=== PATIENT | female | born 1955 | race Caucasian/White ===

== ENCOUNTER 2018-09-07 08:18 | Observation (INO) ==
[2018-09-07] MEDS ORDERED: Regadenoson Inj 0.4 MG/5 ML Syringe IV.PUSH ONE (10:50)
[2018-09-07] MEDS ORDERED: Morphine Inj 4 MG/ML Vial IV.PUSH ONE (12:42)
[2018-09-07] MEDS ORDERED: Morphine Inj 4 MG/ML Vial IV.PUSH PRN (12:43)
[2018-09-07] MEDS: Sod Chloride 0.9% Inj 1,000 ML IV.CONT SCH ×2 (12:52→22:34)
--- NOTE | 2018-09-07 13:25 | P.HP ---
History of Present Illness Service: Hospitalist Primary Care Physician: UNKNOWN Chief Complaint: Chest pain History of Present Illness: Ms. Dawson is a pleasant 62-year-old female with a history of hiatal hernia, GERD, arthritis who presented to the emergency department in [place] due to acute onset of left-sided chest pain. Patient woke up at around 3 AM with this chest pain. Her pain radiates to her left side of the neck and jaw. No vomiting but she does report nausea. After patient was transferred to [place], she again started to experience severe left-sided chest discomfort. She described it as chest tightness squeezing in quality and radiates to her neck and jaw. She does report nausea again. Patient denies any abdominal pain , cough. No fever or chills. Denies any changes in bowel or bladder habits. Past medical history: Arthritis, GERD, hiatal hernia Past surgical history: Knee Surgery Social history: Patient smokes about 10 cigarettes a day. Denies using alcohol. Family history: Grandfather had pulmonary embolism. Review of Systems All other systems reviewed negative except as stated in [facility] - History History Provided By: Patient - Medical History Medical History: Medical History (Last Reviewed 09/07/18 @ 13:18 by Maria Alejandra Prakash DO) Arthritis COPD (chronic obstructive pulmonary disease) Hiatal hernia Injury of left elbow Pneumonia Right knee injury - Surgical History Surgical History: Surgical History (Last Reviewed 09/07/18 @ 13:18 by Maria Alejandra Prakash DO) No history of previous surgery - Tobacco History Smoking Status: Heavy tobacco smoker Tobacco Type: Cigarettes - Alcohol History How Often Do You Have a Drink Containing Alcohol: Never - Substance Use History Substance History: No History of Abuse Medications and Allergies Active Medications: Active Medications Acetaminophen (Tylenol) 500 mg PO Q4H PRN PRN Reason: Headache, fever, pain 1-4 Atorvastatin Calcium (Lipitor) 80 mg PO ONCE ONE Stop: 09/07/18 12:35 Sodium Chloride (Ns Inj) 1,000 mls @ 100 mls/hr IV.CONT .Q10H [facility] Last Admin: 09/07/18 12:52 Dose: 100 mls/hr Metoprolol Tartrate (Lopressor) 25 mg PO BID [facility] Morphine Sulfate (Morphine Inj) 4 mg IV.PUSH Q4H PRN PRN Reason: Chest pain, Pain 5-10 Nitroglycerin (Nitro-Bid 2% Oint) 1 inch TOPICAL Q8HR [facility] Ondansetron HCl (Zofran Inj) 4 mg IV.PUSH Q6H PRN PRN Reason: NAUSEA Sodium Chloride (Ns Flush) 2 ml IV.FLUSH BID [facility] Sodium Chloride (Ns Flush) 2 ml IV.FLUSH PRN PRN PRN Reason: FLUSH AFTER USING IV ACCESS Allergies Allergy/AdvReac Type Severity Reaction Status Date / Time No Known Allergies Allergy Verified 09/07/18 08:29 Home Medications Medication Instructions Recorded Confirmed Type hydrocodone-acetaminophen [[place]] 1 tab PO Q6H 09/07/18 09/07/18 History omeprazole 20 mg PO DAILY 09/07/18 09/07/18 History Exam Vital signs: Vital Signs 09/07/18 12:00 Pulse Rate 105 H Respiratory Rate 30 H Blood Pressure 164/92 H Pulse Oximetry 89 L Narrative: GENERAL: This is a well-nourished, well-developed patient, in mild distress due to left-sided chest pain SKIN: No rashes, ecchymoses or lesions. Warm and dry. HEAD: Atraumatic. Normocephalic. No temporal or scalp tenderness. EYES: Pupils equal round and reactive. No injection or drainage. ENT: Nose without bleeding, purulent drainage or septal hematoma. Airway patent. NECK: Trachea midline. No lymphadenopathy. Supple, nontender, no meningeal signs. CARDIOVASCULAR: Regular rate and rhythm without murmurs, gallops, or rubs. No JVD. RESPIRATORY: Clear to auscultation. Breath sounds equal bilaterally. No wheezes , rales, or rhonchi. GASTROINTESTINAL: Abdomen soft, non-tender, nondistended. No guarding. MUSCULOSKELETAL: Extremities without clubbing, cyanosis, or edema. NEUROLOGICAL: Awake and alert. Cranial nerves II through XII intact. No focal neurological deficits. Normal speech. Results - Labs Labs: 09/07/18 09/07/18 09/07/18 Range/Units 08:33 08:33 08:33 WBC 8.5 (4.0-11.0) th/mm3 RBC 4.75 (4.00-5.30) mil/mm3 Hgb 12.3 (11.6-15.3) gm/dL Hct 38.7 (35.0-46.0) % MCV 81.5 (80.0-100.0) fL MCH 25.9 L (27.0-34.0) pg MCHC 31.8 L (32.0-36.0) % RDW 20.3 H (11.6-17.2) % Plt Count 281 (150-450) th/mm3 MPV 9.9 (7.0-11.0) fL Immature Gran % (Auto) 0.2 (0-6) % Neut % (Auto) 49.4 (16.0-70.0) % Lymph % (Auto) 31.6 (9.0-44.0) % [place] % (Auto) 14.9 H (0.0-8.0) % Eos % (Auto) 3.2 (0.0-4.0) % Baso % (Auto) 0.7 (0.0-2.0) % Immature Gran # (Auto) 0.0 th/mm3 Neut # (Auto) 4.2 (1.8-7.7) th/mm3 Lymph # (Auto) 2.7 (1.0-4.8) th/mm3 [place] # (Auto) 1.3 H (0.0-0.9) th/mm3 Eos # (Auto) 0.3 (0.0-0.4) th/mm3 Baso # (Auto) 0.1 (0.0-0.2) th/mm3 Differential Comment . Sodium 144 (136-145) meq/L Potassium 3.8 (3.5-5.1) meq/L Chloride 112 H (98-107) meq/L Carbon Dioxide 24.0 (21.0-32.0) meq/L Anion Gap 8 (5-15) meq/L BUN 20 H (7-18) mg/dL Creatinine 0.60 (0.50-1.00) mg/dL Estimated GFR Greater than 89 (>89) mL/min Random Glucose 83 (74-106) mg/dL Calcium 9.0 (8.5-10.1) mg/dL Total Bilirubin 0.3 (0.2-1.0) mg/dL AST 28 (15-37) U/L ALT 30 (10-53) U/L Alkaline Phosphatase 119 H (45-117) U/L Troponin I Less than 0.02 L (0.02-0.05) ng/mL B-Natriuretic Peptide 77 (0-100) pg/mL Total Protein 7.7 (6.4-8.2) g/dL Albumin 3.3 L (3.4-5.0) g/dL - Imaging Chest X-Ray 09/07/18 08:29 CONCLUSION: 1. Diffuse interstitial prominence of uncertain chronicity with probable scarring in the left midlung zone. 2. Moderate sized hiatal hernia. Chest CTA 09/07/18 09:40 CONCLUSION: 1. No evidence of pulmonary embolism. 2. Emphysematous chronic obstructive pulmonary disease with nonspecific fibrotic changes. 3. No evidence of acute airspace disease, suspicious nodular densities or pleural effusions. Caprini VTE Risk Assessment Caprini VTE Risk Assessment: No/Low Risk (score <= 1) Caprini Risk Assessment Model: Point Value = 1 Point Value = 2 Point Value = 3 Point Value = 5 Age 41-60 Minor surgery BMI > 25 kg/m2 Swollen legs Varicose veins or History of unexplained or recurrent spontaneous Oral contraceptives or hormone replacement Sepsis (< 1 month) Serious lung disease, including pneumonia (< 1 month) Abnormal pulmonary function Acute myocardial infarction Congestive heart failure (< 1 month) History of inflammatory bowel disease Medical patient at bed rest Age 61-74 Arthroscopic surgery Major open surgery (> 45 min) Laparoscopic surgery (> 45 min) Malignancy Confined to bed (> 72 hours) Immobilizing plaster cast Central venous access Age >= 75 History of VTE Family history of VTE Factor V Leiden Prothrombin [id number] Lupus anticoagulant Anticardiolipin antibodies Elevated serum homocysteine Heparin-induced thrombocytopenia Other congenital or acquired thrombophilia Stroke (< 1 month) Elective arthroplasty Hip, pelvis, or leg fracture Acute spinal cord injury (< 1 month) Prophylaxis Regimen: Total Risk Factor Score Risk Level Prophylaxis Regimen 0-1 Low Early ambulation 2 Moderate Order ONE of the following: *Sequential Compression Device (SCD) *Heparin 5000 units SQ BID 3-4 Higher Order ONE of the following medications: *Heparin 5000 units SQ TID *Enoxaparin/Lovenox 40 mg SQ daily (WT < 150 kg, CrCl > 30 mL/min) *Enoxaparin/Lovenox 30 mg SQ daily (WT < 150 kg, CrCl > 10-29 mL/min) *Enoxaparin/Lovenox 30 mg SQ BID (WT < 150 kg, CrCl > 30 mL/min) AND/OR *Sequential Compression Device (SCD) 5 or more Highest Order ONE of the following medications: *Heparin 5000 units SQ TID (Preferred with Epidurals) *Enoxaparin/Lovenox 40 mg SQ daily (WT < 150 kg, CrCl > 30 mL/min) *Enoxaparin/Lovenox 30 mg SQ daily (WT < 150 kg, CrCl > 10-29 mL/min) *Enoxaparin/Lovenox 30 mg SQ BID (WT < 150 kg, CrCl > 30 mL/min) AND *Sequential Compression Device (SCD) Assessment and Plan - Plan Ms. Dawson is a 62-year-old female with a history of hiatal hernia, GERD who presented to the emergency department in [place] due to acute onset of chest pain. Patient woke up around 3 AM with left-sided chest pain with radiation to her left side of her neck and jaw. She was transferred to [place] for chest pain rule out. Patient again experienced similar chest pain in [place]. Acute chest pain Possible unstable angina We will give her nitroglycerin sublingual and then also start nitroglycerin 2% ointment. Morphine for pain PRN. Patient received aspirin 162 mg in [place] Start metoprolol tartrate 25 mg twice daily, atorvastatin 80 mg once. Continue aspirin 81 mg daily from tomorrow. Discussed with on-call dock coordinator, Dr. Zapien who recommended transferring patient to the main hospital. Continue telemetry. Hiatal hernia GERD Continue Protonix 40 mg daily. Full code. SCDs.
[2018-09-07] MEDS: Metoprolol Tartrate 25 MG Tablet PO SCH ×2 (13:35→20:00)
--- NOTE | 2018-09-07 15:43 | P.CONCA ---
History of Present Illness Service: cardiology Consult date: 09/07/18 Reason for Consult: chest pain Primary Care Provider: UNKNOWN Chief Complaint: Chest pain History of Present Illness: 62 yo F with COPD and no prior cardiac history who presented to ED in [place] this morning for L ear ache and chest pain, transferred to [place] ED and now to [facility]. She woke up this morning at 3am with substernal/epigastric pain "10/ 10" with associated nausea. Pain has remained fairly constant all day fluctuating between "8-10/10" made worse with positional changes. no vomiting, sob or palpitations. EKG is nonischemic and troponin level x 1 is normal. Chest CTA neg for pulmonary embolism, CXR shows moderate sized hiatal hernia. She continues to be symptomatic during examination and pain is somewhat reproducible on exam. She does admit to occasional LE edema. Review of Systems All other systems reviewed negative except as stated in [facility] - History History Provided By: Patient - Medical History Medical History: Medical History (Last Reviewed 09/07/18 @ 13:18 by Maria Alejandra Prakash DO) Arthritis COPD (chronic obstructive pulmonary disease) Hiatal hernia Injury of left elbow Pneumonia Right knee injury - Surgical History Surgical History: Surgical History (Last Reviewed 09/07/18 @ 13:18 by Maria Alejandra Prakash DO) No history of previous surgery - Tobacco History Second Hand Smoke Exposure: No Tobacco Use In Past 30 Days: Yes Smoking Status: Heavy tobacco smoker Tobacco Type: Cigarettes - Alcohol History How Often Do You Have a Drink Containing Alcohol: Never - Substance Use History Substance History: No History of Abuse Medications and Allergies Allergies Allergy/AdvReac Type Severity Reaction Status Date / Time No Known Allergies Allergy Verified 09/07/18 08:29 Home Medications Medication Instructions Recorded Confirmed Type hydrocodone-acetaminophen [[place]] 1 tab PO Q6H 09/07/18 09/07/18 History omeprazole 20 mg PO DAILY 09/07/18 09/07/18 History Active Medications: Active Medications Acetaminophen (Tylenol) 500 mg PO Q4H PRN PRN Reason: Headache, fever, pain 1-4 Aspirin (Ecotrin) 81 mg PO DAILY [facility] Atorvastatin Calcium (Lipitor) 40 mg PO HS [facility] Sodium Chloride (Ns Inj) 1,000 mls @ 100 mls/hr IV.CONT .Q10H [facility] Last Admin: 09/07/18 12:52 Dose: 100 mls/hr Metoprolol Tartrate (Lopressor) 25 mg PO BID [facility] Last Admin: 09/07/18 13:35 Dose: 25 mg Morphine Sulfate (Morphine Inj) 4 mg IV.PUSH Q4H PRN PRN Reason: Chest pain, Pain 5-10 Nitroglycerin (Nitro-Bid 2% Oint) 1 inch TOPICAL Q8HR [facility] Last Admin: 09/07/18 13:36 Dose: 1 inch Ondansetron HCl (Zofran Inj) 4 mg IV.PUSH Q6H PRN PRN Reason: NAUSEA Pantoprazole Sodium (Protonix) 40 mg PO DAILY [facility] Sodium Chloride (Ns Flush) 2 ml IV.FLUSH BID [facility] Sodium Chloride (Ns Flush) 2 ml IV.FLUSH PRN PRN PRN Reason: FLUSH AFTER USING IV ACCESS Exam Vital signs: Vital Signs 09/07/18 12:00 09/07/18 13:05 09/07/18 13:16 Temperature 96.2 F L Pulse Rate 105 H 64 Respiratory Rate 30 H 30 H 20 Blood Pressure 164/92 H 154/87 H Pulse Oximetry 89 L 100 09/07/18 13:36 Temperature Pulse Rate Respiratory Rate 20 Blood Pressure Pulse Oximetry Narrative: GENERAL: SKIN: Warm and dry. HEAD: Normocephalic. EYES: No scleral icterus. No injection or drainage. NECK: Supple, trachea midline. No JVD or lymphadenopathy. CARDIOVASCULAR: Regular rate and rhythm without murmurs, gallops, or rubs. RESPIRATORY: Breath sounds equal bilaterally. No accessory muscle use. GASTROINTESTINAL: Abdomen soft, non-tender, nondistended. MUSCULOSKELETAL: No cyanosis, or edema. Results Cardiac Enzymes 09/07/18 Range/Units 13:05 Troponin I Less than 0.02 L (0.02-0.05) ng/mL Assessment and Plan - Assessment (1) Atypical chest pain Code(s): R07.89 - Other chest pain Status: Acute - Plan 62 yo F with COPD and no prior cardiac history who presented to ED in [place] this morning for L ear ache and chest pain, transferred to [place] ED and now to [facility]. She woke up this morning at 3am with substernal/epigastric pain "10/ 10" with associated nausea. Pain has remained fairly constant all day fluctuating between "8-10/10" made worse with positional changes. no vomiting, sob or palpitations. EKG is nonischemic and troponin level x 1 is normal. Chest CTA neg for pulmonary embolism, CXR shows moderate sized hiatal hernia. She continues to be symptomatic during examination and pain is somewhat reproducible on exam. She does admit to occasional LE edema. atypical chest pain- monitor troponin trend. Will need ischemic workup lexiscan vs. cardiac catheterization - Attending Attestation chest pain - atypical symptoms. Reproducible with deep palpation. Worse with deep inspiration. Persistent for greater than 12 hours without electrocardiographic changes or elevation in troponin. This is noncardiac etiology. She does have associated severe headache. This appears to be more costochondritis/pleuritic type presentation. She does have a moderate-sized hiatal hernia also. Would consider nonsteroidal anti-inflammatory. N.p.o. after midnight. Lexiscan in the morning.
--- NOTE | 2018-09-07 15:47 | ECG ---
Date Performed: 09/07/2018 Time Performed: 13:00:14 PTAGE: 62 years EKG: Baseline artifact present SINUS BRADYCARDIA WITH SINUS ARRHYTHMIA BORDERLINE ECG Compared t o prior electrocardiogram, Rate has markedly decreased. DOCTOR: Duke Espinal Interpretating Date/Time 09/07/2018 15:45:34
[2018-09-07 16:10] LABS: Creatine Kinase 37 U/L (26-192)
[2018-09-07] MEDS ORDERED: Ketorolac Inj 30 MG/ML (IVP) Vial IV.PUSH PRN (16:24)
[2018-09-07] MEDS: Acetaminophen 500 MG Tablet PO PRN (16:32)
[2018-09-07 19:20] LABS: Creatine Kinase 39 U/L (26-192)
[2018-09-07] MEDS: Ibuprofen 400 MG Tablet PO SCH (19:58)
--- NOTE | 2018-09-07 21:55 | ECG ---
Date Performed: 09/07/2018 Time Performed: 15:04:51 PTAGE: 62 years EKG: Sinus rhythm NORMAL ECG No significant change from prior electrocardiogram. DOCTOR: Duke Espinal Interpretating Date/Time 09/07/2018 21:53:58
[2018-09-08] MEDS: Ibuprofen 400 MG Tablet PO SCH ×2 (02:35→11:33)
--- NOTE | 2018-09-08 08:19 | P.PNCA ---
Subjective Interval history: continues to epigastric area discomfort, continuous overnight with associated MONTE. lesxiscan planned for this morning. Medications and Allergies Allergies Allergy/AdvReac Type Severity Reaction Status Date / Time No Known Allergies Allergy Verified 09/07/18 08:29 Home Medications Medication Instructions Recorded Confirmed Type hydrocodone-acetaminophen [[place]] 1 tab PO Q6H PRN 09/07/18 09/07/18 History lorazepam 0.5 mg PO PRN 09/07/18 09/07/18 History omeprazole 20 mg PO TID 09/07/18 09/07/18 History Active Medications: Active Medications Acetaminophen (Tylenol) 500 mg PO Q4H PRN PRN Reason: Headache, fever, pain 1-4 Last Admin: 09/07/18 16:32 Dose: 500 mg Aspirin (Ecotrin) 81 mg PO DAILY [facility] Atorvastatin Calcium (Lipitor) 40 mg PO HS [facility] Sodium Chloride (Ns Inj) 1,000 mls @ 100 mls/hr IV.CONT .Q10H [facility] Last Admin: 09/07/18 22:34 Dose: 100 mls/hr Ibuprofen (Motrin) 400 mg PO Q8H [facility] Last Admin: 09/08/18 02:35 Dose: Not Given Ketorolac Tromethamine (Toradol Inj) 15 mg IV.PUSH Q6H PRN PRN Reason: PAIN SCALE 4 TO 6 MODERATE Stop: 09/12/18 16:23 Metoprolol Tartrate (Lopressor) 25 mg PO BID [facility] Last Admin: 09/07/18 20:00 Dose: 25 mg Morphine Sulfate (Morphine Inj) 4 mg IV.PUSH Q4H PRN PRN Reason: Chest pain, Pain 5-10 Nitroglycerin (Nitro-Bid 2% Oint) 1 inch TOPICAL Q8HR [facility] Last Admin: 09/07/18 22:32 Dose: Not Given Ondansetron HCl (Zofran Inj) 4 mg IV.PUSH Q6H PRN PRN Reason: NAUSEA Pantoprazole Sodium (Protonix) 40 mg PO DAILY [facility] Sodium Chloride (Ns Flush) 2 ml IV.FLUSH BID [facility] Last Admin: 09/07/18 22:35 Dose: 2 ml Sodium Chloride (Ns Flush) 2 ml IV.FLUSH PRN PRN PRN Reason: FLUSH AFTER USING IV ACCESS Physical Exam Vital signs: Vital Signs 09/07/18 12:00 09/07/18 13:05 09/07/18 13:16 Temperature 96.2 F L Pulse Rate 105 H 64 Respiratory Rate 30 H 30 H 20 Blood Pressure 164/92 H 154/87 H Pulse Oximetry 89 L 100 09/07/18 13:36 09/07/18 15:54 09/07/18 16:00 Temperature 97.8 F 98.2 F Pulse Rate 64 70 Respiratory Rate 20 20 20 Blood Pressure 132/67 142/65 H Pulse Oximetry 94 L 95 09/07/18 19:30 09/07/18 20:00 09/07/18 23:25 Temperature 98.6 F 98.0 F Pulse Rate 75 63 71 Respiratory Rate 17 16 Blood Pressure 123/58 L 125/60 Pulse Oximetry 96 97 09/08/18 00:29 09/08/18 03:26 09/08/18 04:29 Temperature 98.0 F Pulse Rate 69 64 65 Respiratory Rate 16 Blood Pressure 133/60 Pulse Oximetry 94 L 09/08/18 08:00 Temperature 97.5 F L Pulse Rate 69 Respiratory Rate 12 Blood Pressure 144/78 H Pulse Oximetry 94 L Intake & Output 09/07/18 09/08/18 09/08/18 18:59 06:59 18:59 Intake Total 900 / 900 Balance 900 / 900 Weight 71.214 kg Intake: IV 900 / 900 NS Inj 1,000 ML @ 100 mls/hr IV 900 / 900 .CONT .Q10H [facility] Rx#:[id number] Other: Date of Last Bowel Movement 09/07/18 Weight On Admission 71.214 kg Narrative: GENERAL: SKIN: Warm and dry. HEAD: Normocephalic. EYES: No scleral icterus. No injection or drainage. NECK: Supple, trachea midline. No JVD or lymphadenopathy. CARDIOVASCULAR: Regular rate and rhythm without murmurs, gallops, or rubs. RESPIRATORY: Breath sounds equal bilaterally. No accessory muscle use. GASTROINTESTINAL: Abdomen soft, non-tender, nondistended. MUSCULOSKELETAL: No cyanosis, or edema. Results Cardiac Enzymes 09/07/18 09/07/18 09/07/18 Range/Units 13:05 15:06 18:31 Troponin I Less than 0.02 L Less than 0.02 L Less than 0.02 L (0.02-0.05) ng/mL Intake and Output 09/07/18 09/08/18 09/08/18 22:59 06:59 14:59 Intake Total 900 / 900 Balance 900 / 900 Intake: IV 900 / 900 NS Inj 1,000 ML @ 100 mls/hr IV 900 / 900 .CONT .Q10H [facility] Rx#:[id number] Other: Date of Last Bowel Movement 09/07/18 Weight 71.214 kg Weight On Admission 71.214 kg Assessment and Plan - Assessment (1) Atypical chest pain Code(s): R07.89 - Other chest pain Status: Inactive - Plan 62 yo F with COPD and no prior cardiac history who presented to ED in [place] for L ear ache and chest pain, transferred to [place] ED and now to [facility]. She woke up yesterday with substernal/epigastric pain "10/10" with associated nausea. Pain has remained constant all day fluctuating between "8-10/10" made worse with positional changes. no vomiting, sob or palpitations. EKG is nonischemic and troponin level x 1 is normal. Chest CTA neg for pulmonary embolism, CXR shows moderate sized hiatal hernia. She continues to be symptomatic during examination and pain is somewhat reproducible on exam. She does admit to occasional LE edema. atypical chest pain- lexiscan planned for this morning. keep npo tylenol prn headache - Attending Attestation Lexiscan today. If the Lexiscan is unremarkable, treat patient for costochondritis. Headache evaluation and treatment per hospitalist. If Lexiscan is negative patient can be discharged on ibuprofen every 6 hours for 1 week in addition to full dose of omeprazole. Based on insurance, patient could follow-up with Dr. Phipps who takes Medicaid
[2018-09-08] MEDS: Acetaminophen 500 MG Tablet PO PRN (08:27)
[2018-09-08] MEDS ORDERED: Regadenoson Inj 0.4 MG/5 ML Syringe IV.PUSH ONE (10:01)
--- NOTE | 2018-09-08 11:19 | NM ---
EXAM DATE: 09/08/2018 11:15 AM EST AGE/SEX: 62 years / Female INDICATIONS:Angina. ST segment changes Mid chest pain for one day. CLINICAL DATA: This is the patient's initial encounter. Patient reports that signs and symptoms have been present for 1 day and indicates a pain score of 10/10. MEDICAL/SURGICAL HISTORY: Chronic obstructive pulmonary disease. Inguinal hernia repair. COMPARISON: No prior exams available for comparison. No external comparison. DOSE: 8.7 mCi Tc 99m Myoview at rest 26.2 mCi [id number] at stress 0.4 mg Lexiscan STRESS SYMPTOMS: Chest pressure. EJECTION FRACTION: 69 % TECHNIQUE: The patient underwent pharmacologic stress with infusion of prescribed dose. Continuous ECG tracing was monitored during stress. Gated SPECT imaging was performed after stress and conventi onal SPECT imaging was performed at rest. The examination was performed on a SPECT/CT scanner, both attenuation and non-corrected datasets were reviewed. FINDINGS: Distribution: The maximum perfused segment at stress is in the lateral wall. Perfusion Study: No reversible perfusion defects are identified. Small fixed apical defect. Gated Study: There are intact wall motion and wall thickening without hypokinetic or dyskinetic segm ents. The ejection fraction is calculated at 69%. RISK CATEGORY: Low (<1% Annual Motality Rate) CONCLUSION: 1. No reversible perfusion defects are identified to suggest stress-induced myocardial ischemia. Electronically signed by: Elie Reeves MD 09/08/2018 11:17 AM EST
[2018-09-08] MEDS: Metoprolol Tartrate 25 MG Tablet PO SCH (11:33)
[2018-09-08] MEDS: Sod Chloride 0.9% Inj 1,000 ML IV.CONT SCH (11:34)
[2018-09-08 11:54] VITALS: O2SAT 96
--- NOTE | 2018-09-08 13:51 | P.DS ---
Date of admission: 09/07/18 12:11 Primary care physician: UNKNOWN Attending physician on discharge: Angel Quiñonez Anticipated date of discharge: 09/08/18 Brief History from admission: Ms. Dawson is a pleasant 62-year-old female with a history of hiatal hernia, GERD, arthritis who presented to the emergency department in [place] due to acute onset of left-sided chest pain. Patient woke up at around 3 AM with this chest pain. Her pain radiates to her left side of the neck and jaw. No vomiting but she does report nausea. After patient was transferred to [place], she again started to experience severe left-sided chest discomfort. She described it as chest tightness squeezing in quality and radiates to her neck and jaw. She does report nausea again. Patient denies any abdominal pain , cough. No fever or chills. Denies any changes in bowel or bladder habits. Past medical history: Arthritis, GERD, hiatal hernia Past surgical history: Knee Surgery Social history: Patient smokes about 10 cigarettes a day. Denies using alcohol. Family history: Grandfather had pulmonary embolism. Patient update on day of discharge: Patient is seen sitting up in bed preparing for Lexiscan. She continues to have a aching sensation in her left chest wall. No shortness of breath. No sharp stabbing pain. No nausea vomiting or reflux symptoms. No dizziness or syncope. DS: Diagnosis - Discharge Diagnosis (1) Chest pain Status: Acute (2) Acute costochondritis Status: Acute (3) Hiatal hernia with GERD Status: Chronic DS: Summary Hospital Course: Ms. Dawson is a 62-year-old female with a history of hiatal hernia, GERD who presented to the emergency department in [place] due to acute onset of chest pain. Patient woke up around 3 AM with left-sided chest pain with radiation to her left side of her neck and jaw. She was transferred to [place] for chest pain rule out. Patient again experienced similar chest pain in [place]. Acute chest pain; Possible unstable angina. Pain improved with nitro and morphine. Continued to be reproducible on exam. Lexiscan was negative. Cardiology recommends treating for costochondritis and follow-up if needed. - Time Spent with Patient Total time spent providing and/or coordinating discharge services: Less than 30 minutes - Quality: VTE Deep Vein Thrombosis/Pulmonary Embolism Present on Admission: No Exam Vital signs: Vital Signs 11/09/18 13:36 09/07/18 15:54 09/07/18 16:00 Temperature 97.8 F 98.2 F Pulse Rate 64 70 Respiratory Rate 20 20 20 Blood Pressure 132/67 142/65 H Pulse Oximetry 94 L 95 09/07/18 19:30 09/07/18 20:00 09/07/18 23:25 Temperature 98.6 F 98.0 F Pulse Rate 75 63 71 Respiratory Rate 17 16 Blood Pressure 123/58 L 125/60 Pulse Oximetry 96 97 09/08/18 00:29 09/08/18 03:26 09/08/18 04:29 Temperature 98.0 F Pulse Rate 69 64 65 Respiratory Rate 16 Blood Pressure 133/60 Pulse Oximetry 94 L 09/08/18 08:00 09/08/18 09:01 09/08/18 11:53 Temperature 97.5 F L 98.3 F Pulse Rate 64 65 Respiratory Rate 12 17 12 Blood Pressure 144/78 H 145/72 H Pulse Oximetry 94 L 96 09/08/18 12:00 Temperature Pulse Rate 57 L Respiratory Rate Blood Pressure Pulse Oximetry Intake & Output 09/07/18 09/08/18 09/08/18 18:59 06:59 18:59 Intake Total 900 / 900 1000 / 1000 Balance 900 / 900 1000 / 1000 Weight 71.214 kg Intake: IV 900 / 900 1000 / 1000 NS Inj 1,000 ML @ 100 mls/hr IV 900 / 900 1000 / 1000 .CONT .Q10H [facility] Rx#:[id number] Other: Date of Last Bowel Movement 09/07/18 Weight On Admission 71.214 kg Narrative: GENERAL: This is a well-nourished, well-developed patient, in mild distress due to left-sided chest pain SKIN: Warm and dry. HEAD: Atraumatic. Normocephalic. NECK: Trachea midline. No lymphadenopathy. Supple, nontender, no meningeal signs. CARDIOVASCULAR: Regular rate and rhythm without murmurs, gallops, or rubs. No JVD. RESPIRATORY: Clear to auscultation. Breath sounds equal bilaterally. No wheezes , rales, or rhonchi. GASTROINTESTINAL: Abdomen soft, non-tender, nondistended. No guarding. MUSCULOSKELETAL: Extremities without clubbing, cyanosis, or edema. Left-side anterior chest wall extremely tender to palpation NEUROLOGICAL: Awake and alert. Cranial nerves II through XII intact. No focal neurological deficits. Normal speech. Results Procedures completed during hospitalization: Stress test Labs on day of discharge: Labs from last 24 hours 09/07/18 09/07/18 09/07/18 18:31 15:06 13:05 Total Creatine Kinase 39 37 Troponin I Less than 0.02 L Less than 0.02 L Less than 0.02 L - Impressions ITS Impressions Myocardial Perfusion Scan Nuc Med 09/08/18 00:00 CONCLUSION: 1. No reversible perfusion defects are identified to suggest stress-induced myocardial ischemia. Discharge Plan - Discharge Disposition Patient Disposition: Discharge Home - Discharge Condition Condition: Stable - Discharge Order Discharge Orders: Discharge Order (Routine); Ordered 09/08/18 Ordered By: Robyn Fitch - Physicians Team Primary Care Provider: UNKNOWN, Attending Provider: Angel Quiñonez Other Providers: Ivan Zapien MD - Rxs /Orders / Referrals /Forms Prescriptions: New ibuprofen 400 mg Tablet 400 mg PO Q8H 7 Days Qty: 21 RF: 0 Continue hydrocodone-acetaminophen [[place]] 7.5-325 mg Tablet 1 tab PO Q6H PRN (Reason: Pain) lorazepam 0.5 mg Tablet 0.5 mg PO PRN omeprazole 20 mg Capsule,Delayed Release(Dr/Ec) 20 mg PO TID Referrals: UNKNOWN, [Primary Care Provider] - See Instructions - Discharge Instructions Patient Printed Instructions: Costochondritis (GEN) - Post Discharge Care Plan Care Plan Goals: Your Health Problems: Goals to Promote Your Health: * To prevent worsening of your condition * To maintain your health at the optimal level Directions to Meet Your Goals: * Take your medications as prescribed * Follow your dietary instruction * Follow activity as directed * Keep your appointments as scheduled * Take your immunizations and boosters as scheduled * If your symptoms worsen call your PCP * If no PCP go to Urgent Care or Emergency Room Smoking is dangerous to your health. Avoid second hand smoke. You may reach the 24-hour crisis hotline for domestic abuse at .
[2018-09-11 03:55] VITALS: BP 159/75; PULSE 88; RESP 18; TEMP 98.6
== END 2018-09-08 16:34 | disposition home or self-care (01) ==
LOC: PH3 08:18 → PHEDDLT 08:18 → NEPHCDU 14:50
PROVIDERS: ADMIT Family Medicine; ATTEND Family Medicine